=== PATIENT | male | born 1990 | race African-American/Black ===

== ENCOUNTER 2023-12-05 19:43 | Emergency (ER) | payer SELFPAY ==
[~2023-12-05] VITALS: Ht 180.3 cm; Wt 66.0 kg
[2023-12-05 20:17] VITALS: BP 121/74; PULSE 82; RESP 18; TEMP 98.8; O2SAT 100
[2023-12-05 20:52] LABS: CLARITY URINE CLOUDY (CLEAR); COLOR URINE YELLOW (YELLOW); GLUCOSE URINE NEGATIVE (NEGATIVE); KETONES URINE NEGATIVE (NEGATIVE); LEUKOCYTE ESTERASE URINE 3+ (NEGATIVE); NITRITE URINE NEGATIVE (NEGATIVE); OCCULT BLOOD URINE TRACE (NEGATIVE); PROTEIN URINE NEGATIVE (NEGATIVE); SPECIFIC GRAVITY URINE 1.017 (1.005-1.030)
[2023-12-05] MEDS ORDERED: DOXY100T2 MT (21:13)
[2023-12-05] MEDS: LIDOCAINE HCL 1% 20ML VIAL (Pyxis) INJ INFIL ONE (21:15)
[2023-12-05] MEDS: CEFTRIAXONE SODIUM 500MG VIAL IM ONE (21:15)
[2023-12-05] MEDS ORDERED: METRONIDAZOLE 250MG TABLET PO ONE (21:15)
[2023-12-05] MEDS: METRONIDAZOLE 500MG TABLET PO NR (21:30)
[2023-12-05 21:51] LABS: WBC URINE TNTC /hpf (0-2)
[2023-12-05 21:52] LABS: BACTERIA URINE TRACE; SQUAMOUS EPITHELIAL CELL URINE NONE SEEN /lpf (RARE/1+)
== END 2023-12-05 22:08 | disposition home or self-care (01) ==
LOC: ER 19:43
DX: R36.9 Urethral discharge, unspecified (principal); A64 Unspecified sexually transmitted disease
CPT/HCPCS: 99283; 81003; 87086; 96372; J0696; J3490